=== PATIENT | female | born 1950 | race Caucasian/White ===

== ENCOUNTER 2020-01-05 13:22 | Observation (INO) | payer MEDICARE ==
[2020-01-01 11:13] LABS: BASOPHILS # (AUTO) 0.1 (0.0-0.1); BASOPHILS % 0.8 % (0.0-1.0); EOSINOPHILS # (AUTO) 0.2 (0.0-0.4); EOSINOPHILS % 1.9 % (0.0-6.0); HEMATOCRIT 47.2 % (34.2-44.1); HEMOGLOBIN 15.3 g/dL (12.0-16.0); LYMPHOCYTES # (AUTO) 2.1 (1.0-3.2); MEAN CORPUSCULAR HEMOGLOBIN 29.3 pg (28-32); MEAN CORPUSCULAR HGB CONC 32.4 g/dL (31-35); MEAN CORPUSCULAR VOLUME 90.2 fL (81-99); MONOCYTES # (AUTO) 0.5 (0.2-0.8); MONOCYTES % 6.4 % (4.4-11.3); NEUTROPHILS # (AUTO) 5.1 (2.1-6.9); NEUTROPHILS % 64.5 % (38.7-80.0); PLATELET COUNT 208 x10e3/uL (140-360); RED BLOOD COUNT 5.23 x10e6/uL (3.6-5.1); RED CELL DISTRIBUTION WIDTH 14.8 % (11.7-14.4)
[2020-01-01 11:32] LABS: ALANINE AMINOTRANSFERASE 19 IU/L (0-55); ALBUMIN 3.7 g/dL (3.5-5.0); ALBUMIN/GLOBULIN RATIO 1.1 (0.8-2.0); ALKALINE PHOSPHATASE 72 IU/L (40-150); ANION GAP 12.2 mmol/L (8-16); BLOOD UREA NITROGEN 12 mg/dL (7-26); BUN/CREATININE RATIO 14 (6-25); CALCIUM 9.4 mg/dL (8.4-10.2); CARBON DIOXIDE 24 mmol/L (22-29); CHLORIDE 106 mmol/L (98-107); CREATININE, SERUM 0.85 mg/dL (0.57-1.11); EST GLOMERULAR FILTRATION RATE > 60 ML/MIN (60-); GLUCOSE 82 mg/dL (74-118); POTASSIUM 4.2 mmol/L (3.5-5.1); SODIUM 138 mmol/L (136-145)
--- NOTE | 2020-01-01 13:32 | NUR ---
Dr. Ponce notified of iodine allergy. Dr. Ponce ordered for solumedrol 125mg IV one time prior to procedure. Dr. Ponce stated okay to continue to give benadryl 50mg po before procedure. Addendum: 01/01/20 at 1705 by Edita Roberts RN ENTERED ON INCORRECT PATIENT
[~2020-01-05] VITALS: Ht 175.3 cm; Wt 81.6 kg
[2020-01-05] VITALS (17 sets, daily range): BP systolic 124–171; BP diastolic 58–100
[~2020-01-05 13:22] MED LIST: ADVAIR 250-501 EACH INH; ATENOLOL50 MG PO; COQ1050 MG PO; FISH OIL 1,0001 EAC2 PO; FLECAINIDE ACE100 MG PO; LIPITOR20 MG PO; LORTAB 10 PO; MELATONIN3 M1 PO; ZOLOFT50 MG PO
[2020-01-05] MEDS ORDERED: DIPHENHYDRAMINE HCL 25 MG CAP ONE (14:02)
[2020-01-05] MEDS ORDERED: ALPRAZOLAM 0.5 MG TAB ONE (14:02)
[2020-01-05] MEDS ORDERED: MIDAZOLAM HCL 2 MG/2 ML VIAL ONE ×2 (16:16→16:47)
[2020-01-05] MEDS ORDERED: FENTANYL CITRATE/PF 100MCG/2 ML INJ ONE (16:16)
[2020-01-05] MEDS ORDERED: HEPARIN SOD/SOD CHLORIDE 2,000 ML ONE (16:17)
[2020-01-05] MEDS ORDERED: LIDOCAINE HCL 2% LOCAL 20 ML VIAL ONE (16:17)
[2020-01-05] MEDS ORDERED: IOPAMIDOL 370 MG/ML 200 ML INFUS..BTL INJ ONE (16:17)
[2020-01-05] MEDS ORDERED: HEPARIN SOD (PORCINE) 1000 UNIT/ML 30ML ONE (16:27)
[2020-01-05] MEDS ORDERED: VERAPAMIL HCL 2.5 MG/ML 2 ML VIAL ONE (16:27)
[2020-01-05] MEDS ORDERED: SODIUM CHLORIDE 0.9% 1000ML 1,000 ML ONE (16:37)
[2020-01-05] MEDS ORDERED: SODIUM CHLORIDE 0.9% 50ML 50 ML ONE (16:54)
[2020-01-05] MEDS ORDERED: BIVALRIUDIN 250 MG/VIAL VIAL IV ONE (16:54)
[2020-01-05] MEDS ORDERED: PRASUGREL 10 MG TAB ONE (17:03)
[2020-01-05] MEDS ORDERED: ASPIRIN 325 MG TAB ONE (17:03)
--- NOTE | 2020-01-05 17:45 | NUR ---
bedside report received from Sukhwinder ACEVES. Alert oriented and appropriate, PERRLA, respirations even and unlabored to room air. Pulses x4 extremities equal and strong. . Cap fill brisk < 3 sec. +neurovascular function to right hand w TR band 12ml in bladder. Skin warm and dry integrity appears intact except for resolving bruising on left forearm which pt claims was present prior to arrival. IV 20g to left AC presents healthy w/o s/s of infiltration or complaint. Abdomen soft and supple. pt offered toileting, denies need to urinate or defecate. No personal affects with patient. Family called to bedside. Pt and family verbalizes understanding of POC. nutrition and drink provided, HOB raised. Currently w/o complaint of pain or need. bed low and locked, side rails up x2 and call light within reach. -cgf
--- NOTE | 2020-01-05 18:15 | NUR ---
second "snack" tray provided. no changes in right TR Band, + neurovascular function. VS wnl. no gross need. TV controls provided.
--- NOTE | 2020-01-05 18:55 | NUR ---
pt transferred to ACU 10 for closer observation to nurses station. hand off to DS RN. no acute distress or need at this time. spouse remains at bedside.
--- NOTE | 2020-01-05 19:00 | NUR ---
1900p Received pt to room #10, Identifierx2 .Bedside report received from KETAN Nelson. Alert oriented and appropriate, PERRLA, respirations even and unlabored to room air. Pulses x4 extremities equal and strong. Pedal pulses PT/DP X4 . Cap fill brisk < 3 sec. TR band comes off at 2015pm. No gross issues pain pallor pressure of dysthymia.for dc home at 10pm. Dc planning discussed with and copies given to him as well as prescription for fill. Was Communications Operator Tr band approach with 12cc in band . Stentx1.RCA. Dr Ponce. Skin warm and dry integrity appears D/I IV 20g to left ac. Presents healthy w/o s/s of infiltration or complaint. Abdomen soft and supple. pt offered toileting, denies need to urinate or defecate. No personal affects with patient. Family at bedside. DC plan discussed. Pt and family verbalizes understanding of POC. Currently w/o complaint of pain or need. Tolerated po intake. Walked to bathroom and void qs. with nurse assistance.laura/ketan
--- NOTE | 2020-01-05 20:15 | NUR ---
2015 Handoff to Omar ACEVES . For dc tonight at 10pm after TR band off and stasis remains achieved.Phone report and transfer per Omar ACEVES No gross issues pain pallor pressure or dysrhythmia. Ivs 0.9ns continue at 100cchr till dc left ac site remains health w/o s/s infiltration. laura/kaushal
--- NOTE | 2020-01-05 22:26 | NUR ---
2019 Pt to transferred to room 190 for Recovery and Discharge. Bedside report received from KETAN Nelson. Orders to remove TR band to Rt Wrist to begin keke and D/C at 2214. Pt is Alert, Oriented, ambulatory and appropriate, PERRLA, respirations even and unlabored to room air. Pulses x4 extremities equal and strong. No gross issues, No pallor, pain, paralysis or paraesthesia. Pulses palpable X 4 extremities. Cap fill brisk < 3 sec. TR band to Rt Wrist removed at 2121 without incident. Direct pressure held to site until 2121. No bleeding, hematoma or c/o distress from Pt. No gross issues pain, pallor, paralysis, pressure or paraesthesia. Sterile gauze and coban dressing applied, armboard in place. Discharge planning and instructions discussed with and Pt. This RN verified that copies were given to as well as prescription for fill. 2205 Rt Wrist assessed no evidence of bleeding, hematoma or c/o distress from Pt. No pain, pallor, paralysis, pressure or paraesthesia to site. Lf AC 20G IV discontinued w/o s/s infiltration, redness, swelling or pain to site. Pt able to get dressed at this time. No c/o Nausea upon standing, or distress of any kind at this time. 2221 Pt discharged home. [facility] Plan of care and discharge instructions discussed again with Pt and no questions at this time.
--- NOTE | 2020-01-06 00:24 | Operative Report ---
DATE OF PROCEDURE: 01/05/2020 SURGEON: Jonathan Ponce MD INDICATION: Coronary artery disease, abnormal stress test. PROCEDURES PERFORMED: 1. Left heart catheterization, selective coronary angiography. 2. PTCA and stent placement to the distal right coronary artery. 3. Deployment of right wrist TR band. COMPLICATIONS: None. TOTAL SEDATION TIME: 65 minutes of monitored physiological and hemodynamic monitoring by twister operator as well as nurse. BLOOD LOSS: Minimal. RECOMMENDATIONS: Dual antiplatelet therapy for at least 6 months. DESCRIPTION OF PROCEDURE: Access obtained in the right radial artery. A 5-[place]izen [place] sheath was placed. Coronary angiography demonstrated 50% proximal left anterior descending artery stenosis. Remaining left anterior descending artery and circumflex artery had mild disease. Distal right coronary artery, 80% stenosis. LV end-diastolic pressure of 14. No gradient across the aortic valve pullback. A decision was made to intervene on the right coronary artery. The patient received intravenous Angiomax and oral aspirin and Effient for anticoagulation. The right coronary artery was cannulated using ERAD 5-[place]izen [place] guiding catheter. Short Runthrough wire was advanced for support. Primary stent 3.0 x 12 mm deployed at 16 atmospheres, excellent end result, less than 10% residual stenosis, ALEXA-3 flow. No complications. Right wrist TR band applied and the patient discharged home. Jonathan Ponce MD KSB/MODL /[id number]
== END 2020-01-05 22:20 | disposition home or self-care (01) ==
LOC: CATH LAB 13:22 → ICU 20:44 → INTOOBSV 20:44
PROVIDERS: ADMIT Internal Medicine Interventional Cardiology; ATTEND Internal Medicine Interventional Cardiology
DX: I25.119 Atherosclerotic heart disease of native coronary artery with unspecified angina pectoris (principal); Z01.812 Encounter for preprocedural laboratory examination; Z88.0 Allergy status to penicillin; Z88.2 Allergy status to sulfonamides; Z91.040 Latex allergy status; Z95.0 Presence of cardiac pacemaker; I49.3 Ventricular premature depolarization; E78.5 Hyperlipidemia, unspecified
CPT/HCPCS: 93458; C9600; 36415; 80053; 85025; 92928; 99152; C1769; C1874; C1887; G0378; J0583; J1644; J2001; J2250; J3010; J7030; Q9967